=== PATIENT | male | born 1960 | race Caucasian/White ===

== ENCOUNTER 2019-11-28 03:47 | Outpatient (CLI) | payer OTHER, SELFPAY ==
[2019-11-28 19:05] LABS: SARS-CoV-2 RNA PCR Negative
== END 2019-11-28 03:48 | disposition home or self-care (01) ==
LOC: ANHCOVIDDT 03:47
PROVIDERS: PCP Internal Medicine; Visit Provider Internal Medicine Gastroenterology
DX: Z01.812 Encounter for preprocedural laboratory examination (principal); Z20.828 Contact with and (suspected) exposure to other viral communicable diseases
CPT/HCPCS: 87635; C9803; U0003

== ENCOUNTER 2019-11-30 01:42 | Day surgery (SDC) | payer OTHER, SELFPAY ==
[2019-11-26 09:19] VITALS: BMI 42.6
[2019-11-30 08:48] VITALS: BP 115/97; PULSE 72; RESP 20; TEMP 36.3; O2SAT 98; BMI 43.7
--- NOTE | 2019-11-30 08:55 | WPDANESEPPF ---
Anes - Initial Pre Proc Eval Procedure: Operation Date: 11/30/19 09:30 Proposed Procedures p Screening Colonoscopy - Paolo Jay MD Date/Time: 11/30/19 08:55 Surgeon: Paolo Jay MD Pre Op Diagnosis: screening, hx of polyps Patient Data Age: 58 Gender: M Height: 1.73 m Weight: 130.3 kg Last Vital Signs Temp 36.3 C L 11/30/19 08:48 Pulse 72 11/30/19 08:48 Resp 20 11/30/19 08:48 BP 115/97 H 11/30/19 08:48 Pulse Ox 98 11/30/19 08:48 Allergies Allergy/AdvReac Type Severity Reaction Status Date / Time No Known Allergies Allergy Verified 11/30/19 08:47 Home Medications Medication Instructions Recorded Confirmed Type aspirin 81 mg tablet,delayed 81 mg PO DAILY 08/14/19 11/26/19 History release atorvastatin 10 mg tablet 10 mg PO DAILY #90 tablet 11/07/19 11/26/19 Rx lisinopril 10 mg tablet 10 mg PO DAILY #90 tablet 11/23/19 11/26/19 Rx famotidine 2 mg PO DAILY 11/26/19 11/26/19 History Patient hx anesthesia problems: none Family hx anesthesia problems: none PMFSH Past Medical History Medical History (Updated 11/30/19 @ 08:56 by Alex Pearson MD) Chicken pox Chronic GERD Hyperlipidemia Hypertension Obesity JESSE on CPAP Tinnitus Surgical History Surgical History (Updated 08/14/19 @ 07:18 by Sandra Marie CMA) H/O removal of testicle Family History Family History (Updated 10/11/17 @ 08:28 by DOCTOR UNKNOWN) Father Patient's father is in good health Sibling Acute myocardial infarction Mother Family history of malignant neoplasm of ovary Social History Social History Smoking status: Never smoker Alcohol intake: never Substance use type: does not use Living arrangements: with family Gender identity (if verbalized by the patient): Male Spiritual care concerns: No Anes - Eval Final PreProcedure Day of Procedure 11/30/19 08:55 Patient weight: obese Heart: regular rate and rhythm Lungs: clear to auscultation and normal air movement Airway: Mallampati scale class II Neurological: alert and oriented Last oral intake: >/= 8 hours ASA classification: III Emergent: no Anesthetic plan: proceed Anesthesia type and monitoring: general GIVS Informed Consent: The patient's anesthetic plan and its attendant risks and benefits were discussed with the patient/family/POA. Questions were solicited and answers provided to the satisfaction of the patient/family/POA.
--- NOTE | 2019-11-30 09:00 | PM.HPGS ---
History of Present Illness History of Present Illness Consent: Risks, benefits, and alternatives have been discussed and questions answered. Patient agrees to proceed with procedure. Chief complaint: screening, hx of polyps Narrative: William Antonio is a 58 year old W male undergoing screening colonoscopy secondary history of colonic polyps. Last colonoscopy was 3 years ago which time 3 adenomatous polyps were removed. There is no family history of colon polyps or colon cancer. Patient is asymptomatic. [facility] Past Medical History Medical History (Updated 11/30/19 @ 08:56 by Alex Pearson MD) Chicken pox Chronic GERD Hyperlipidemia Hypertension Obesity JESSE on CPAP Tinnitus Surgical History Surgical History (Updated 08/14/19 @ 07:18 by Sandra Marie CMA) H/O removal of testicle Family History Family History (Updated 10/11/17 @ 08:28 by DOCTOR UNKNOWN) Father Patient's father is in good health Sibling Acute myocardial infarction Mother Family history of malignant neoplasm of ovary Social History Social History Smoking status: Never smoker Alcohol intake: never Substance use type: does not use Living arrangements: with family Gender identity (if verbalized by the patient): Male Spiritual care concerns: No Meds Home Medications and Allergies Home Medications Medication Instructions Recorded Confirmed Type aspirin 81 mg tablet,delayed 81 mg PO DAILY 08/14/19 11/26/19 History release atorvastatin 10 mg tablet 10 mg PO DAILY #90 tablet 11/07/19 11/26/19 Rx lisinopril 10 mg tablet 10 mg PO DAILY #90 tablet 11/23/19 11/26/19 Rx famotidine 2 mg PO DAILY 11/26/19 11/26/19 History Allergies Allergy/AdvReac Type Severity Reaction Status Date / Time No Known Allergies Allergy Verified 11/30/19 08:47 Vital Signs Vital Signs - 24 hr 11/30/19 08:48 Temperature 36.3 C L Pulse Rate 72 Respiratory Rate 20 Blood Pressure 115/97 H Pulse Oximetry 98 Exam Const: Orientation/consciousness: patient oriented x3 Resp: Auscultation: clear to auscultation bilaterally Cardio: Rate: regular rate Rhythm: regular rhythm Heart sounds: no murmurs GI: GI Palp: Yes Soft to palpation, No Tenderness to palpation present (GI), Yes No hepatosplenomegaly present and No Palpable mass present Auscultation: normal bowel sounds Neuro: General: patient oriented x3 and no focal motor deficits Extrem: General: no pedal edema Assessment and Plan Additional Plan Screening colonoscopy secondary history of colonic polyps
[2019-11-30] MEDS: LACTATED RINGERS 1,000 ML 150 ML IV CONT (09:04)
[2019-11-30 10:23] VITALS: BP 96/61; PULSE 50; RESP 18; O2SAT 96
[2019-11-30 10:33] VITALS: BP 109/62; PULSE 54; RESP 22; O2SAT 95
[2019-11-30 10:43] VITALS: BP 111/75; PULSE 56; RESP 27; O2SAT 98
== END 2019-11-30 11:01 | disposition home or self-care (01) ==
PROVIDERS: PCP Internal Medicine; Visit Provider Internal Medicine Gastroenterology
PROC: 0DJD8ZZ Inspection of Lower Intestinal Tract, Via Natural or Artificial Opening Endoscopic (ICD-10-PCS; CPT 45378; principal; 2019-11-30 09:30)
DX: Z12.11 Encounter for screening for malignant neoplasm of colon (principal); D12.5 Benign neoplasm of sigmoid colon; D12.3 Benign neoplasm of transverse colon; D12.0 Benign neoplasm of cecum; K21.9 Gastro-esophageal reflux disease without esophagitis; E78.5 Hyperlipidemia, unspecified; E66.9 Obesity, unspecified; I10 Essential (primary) hypertension; G47.33 Obstructive sleep apnea (adult) (pediatric); H93.19 Tinnitus, unspecified ear
CPT/HCPCS: 45385; 45380; 88305; J2704; J7120

== ENCOUNTER 2020-11-21 07:13 | Outpatient (CLI) | payer OTHER, SELFPAY ==
[2020-11-21 08:14] LABS: Basophils Absolute Auto 0.1 K/mm3 (0.0-0.1); Basophils Percent Auto 1.1 % (0.2-1.2); Eosinophils Absolute Auto 0.1 K/mm3 (0-0.3); Eosinophils Percent Auto 2.1 % (0-4.4); Hematocrit 47.5 % (42.0-52.0); Hemoglobin 15.3 g/dL (14.0-18.0); Immature Granulocyte Absolute 0.05 K/mm3 (0.00-0.031); Immature Granulocyte Percent A 0.8 % (0-0.5); Lymphocytes Absolute Auto 1.24 K/mm3 (0.9-3.2); Lymphocytes Percent Auto 18.8 % (18.3-44.2); Mean Corpuscular HGB Conc 32.2 g/dl (32-36); Mean Corpuscular Hemoglobin 30.5 pg (26-34); Mean Corpuscular Volume 94.6 fl (80-100); Mean Platelet Volume 10.6 fl (7.4-10.4); Monocytes Absolute Auto 0.6 K/mm3 (0.1-0.6); Monocytes Percent Auto 9.7 % (2.6-8.5); Neutrophils Absolute Auto 4.5 K/mm3 (1.3-6.7); Neutrophils Percent Auto 67.5 % (45.5-73.1); Platelet Count Result 207 k/mm3 (150-375); Red Blood Count 5.02 M/mm3 (4.6-6.20); Red Cell Distribution Width 13.2 % (11.5-14.5); White Blood Count 6.6 K/mm3 (4.5-10.0)
[2020-11-21 09:08] LABS: Hemoglobin A1C 6.1 % (<5.7)
[2020-11-21 13:50] LABS: Alanine Aminotransferase 41 U/L (4-50); Albumin Level 4.5 g/dL (3.5-5.1); Alkaline Phosphatase 85 U/L (38-126); Anion Gap 8 mmol/L (8-16); Aspartate Amino Transferase 35 U/L (17-59); Bilirubin,Total 0.5 mg/dL (0.2-1.3); Blood Urea Nitrogen 20 mg/dL (9-20); Calcium 9.3 mg/dL (8.4-10.2); Carbon Dioxide 26 mmol/L (22-30); Chloride 104 mmol/L (98-107); Cholesterol 157 mg/dL (0-200); Estimated Glomerular Filt Rate > 60; Glucose 98 mg/dL (65-110); HDL Direct 45 mg/dL; Potassium 4.5 mmol/L (3.4-5.0); Sodium 138 mmol/L (137-145); Triglycerides 132 mg/dL (<150)
[2020-11-21 14:01] LABS: LDL Cholesterol Direct 89 mg/dL
== END 2020-11-21 07:14 | disposition home or self-care (01) ==
PROVIDERS: PCP Internal Medicine; Visit Provider Clinical Nurse Specialist
DX: Z13.228 Encounter for screening for other metabolic disorders (principal); E78.5 Hyperlipidemia, unspecified; R73.09 Other abnormal glucose
CPT/HCPCS: 36415; 80053; 80061; 83036; 85025

== ENCOUNTER 2021-11-27 06:57 | Outpatient (CLI) | payer OTHER, SELFPAY ==
[2021-11-27 07:28] LABS: Basophils Absolute Auto 0.1 K/mm3 (0.0-0.1); Basophils Percent Auto 0.7 % (0.2-1.2); Eosinophils Absolute Auto 0.2 K/mm3 (0-0.3); Eosinophils Percent Auto 2.3 % (0-4.4); Hematocrit 45.4 % (42.0-52.0); Hemoglobin 14.8 g/dL (14.0-18.0); Immature Granulocyte Absolute 0.03 K/mm3 (0.00-0.031); Immature Granulocyte Percent A 0.4 % (0-0.5); Lymphocytes Absolute Auto 1.54 K/mm3 (0.9-3.2); Lymphocytes Percent Auto 22.5 % (18.3-44.2); Mean Corpuscular HGB Conc 32.6 g/dl (32-36); Mean Corpuscular Volume 92.1 fl (80-100); Mean Platelet Volume 10.6 fl (7.4-10.4); Monocytes Absolute Auto 0.7 K/mm3 (0.1-0.6); Monocytes Percent Auto 9.5 % (2.6-8.5); Neutrophils Absolute Auto 4.4 K/mm3 (1.3-6.7); Neutrophils Percent Auto 64.6 % (45.5-73.1); Platelet Count Result 214 k/mm3 (150-375); Red Blood Count 4.93 M/mm3 (4.6-6.20); Red Cell Distribution Width 13.4 % (11.5-14.5); White Blood Count 6.9 K/mm3 (4.5-10.0)
[2021-11-27 07:39] LABS: Alanine Aminotransferase 36 U/L (6-50); Albumin Level 4.2 g/dL (3.5-5.1); Alkaline Phosphatase 77 U/L (38-126); Anion Gap 9 mmol/L (8-16); Aspartate Amino Transferase 31 U/L (17-59); Bilirubin,Total 0.6 mg/dL (0.2-1.3); Blood Urea Nitrogen 20 mg/dL (9-20); Calcium 9.3 mg/dL (8.4-10.2); Carbon Dioxide 28 mmol/L (22-30); Chloride 101 mmol/L (98-107); Cholesterol 145 mg/dL (0-200); Estimated Glomerular Filt Rate > 60; Glucose 114 mg/dL (65-110); HDL Direct 42 mg/dL; Potassium 4.7 mmol/L (3.4-5.0); Sodium 138 mmol/L (137-145); Triglycerides 118 mg/dL (<150)
[2021-11-27 07:50] LABS: LDL Cholesterol Direct 76 mg/dL
[2021-11-27 07:59] LABS: Hemoglobin A1C 6.1 % (<5.7)
[2021-11-27 08:07] LABS: Rheumatoid Factor < 8.6 IU/ML (<12)
[2021-11-27 08:09] LABS: Prostate Specific Antigen 1.1 ng/mL (< OR = 4.0)
[2021-11-27 09:16] LABS: Erythrocyte Sedimentation Rate 10 mm/hr (0-20)
[2021-11-27 09:30] LABS: Vitamin D 25 Hydroxy 18.8 ng/mL
== END 2021-11-27 06:58 | disposition home or self-care (01) ==
LOC: ANHLAB 06:59
PROVIDERS: PCP Internal Medicine; Visit Provider Clinical Nurse Specialist
DX: M79.10 Myalgia, unspecified site (principal); I10 Essential (primary) hypertension; R73.09 Other abnormal glucose; E78.2 Mixed hyperlipidemia; Z12.5 Encounter for screening for malignant neoplasm of prostate; E55.9 Vitamin D deficiency, unspecified
CPT/HCPCS: 36415; 80053; 80061; 82306; 83036; 84153; 84443; 85025; 85652; 86038; 86430; G0103

== ENCOUNTER 2022-04-02 12:31 | Emergency (ER) | payer OTHER, SELFPAY ==
--- NOTE | ~2022-04-02 | XR_ITS ---
EXAMINATION: XR chest 2V 04/02/2022 13:16 INDICATION: Left-sided chest pain PROCEDURE: 2 view chest COMPARISON: No prior studies for comparison. FINDINGS: The lungs are clear. The cardiomediastinal silhouette is within normal limits. There are no pleural effusions. There is no pneumothorax suspected. There is a healed left clavicular fractur e. IMPRESSION: 1: NO ACUTE CARDIOPULMONARY DISEASE. Reviewed, dictated and finalized at location B. [employer]
--- NOTE | 2022-04-02 12:33 | ECG_ITS ---
Measurements Intervals Plessis Rate: 59 P: 18 NC: 156 QRS: -44 QRSD: 101 T: 14 QT: 393 QTc: 390 Interpretive Statements SINUS BRADYCARDIA WITH OCCASIONAL ATRIAL PREMATURE COMPLEXES LEFT ANTERIOR SUPERIOR HEMIBLOCK ABNORMAL ECG NO PREVIOUS ECG AVAILABLE FOR COMPARISON Electronically Signed On 04-02-2022 15:39:01 MANAGER SHIFT by Petar Kwon M.D.
[2022-04-02 12:51] VITALS: BP 142/80; PULSE 56; RESP 18; TEMP 36.6; O2SAT 100
[2022-04-02 13:32] LABS: Basophils Absolute Auto 0.1 K/mm3 (0.0-0.1); Basophils Percent Auto 1.1 % (0.2-1.2); Eosinophils Absolute Auto 0.2 K/mm3 (0-0.3); Eosinophils Percent Auto 2.1 % (0-4.4); Hematocrit 49.5 % (42.0-52.0); Hemoglobin 16.3 g/dL (14.0-18.0); Immature Granulocyte Absolute 0.02 K/mm3 (0.00-0.031); Immature Granulocyte Percent A 0.3 % (0-0.5); Lymphocytes Absolute Auto 1.32 K/mm3 (0.9-3.2); Lymphocytes Percent Auto 18.9 % (18.3-44.2); Mean Corpuscular HGB Conc 32.9 g/dl (32-36); Mean Corpuscular Hemoglobin 30.4 pg (26-34); Mean Corpuscular Volume 92.4 fl (80-100); Mean Platelet Volume 10.8 fl (7.4-10.4); Monocytes Absolute Auto 0.8 K/mm3 (0.1-0.6); Monocytes Percent Auto 10.7 % (2.6-8.5); Neutrophils Absolute Auto 4.7 K/mm3 (1.3-6.7); Neutrophils Percent Auto 66.9 % (45.5-73.1); Platelet Count Result 217 k/mm3 (150-375); Red Blood Count 5.36 M/mm3 (4.6-6.20); Red Cell Distribution Width 12.9 % (11.5-14.5)
[2022-04-02 13:43] LABS: Prothrombin Time 12.9 Seconds (11.1-14.7)
[2022-04-02 13:44] LABS: Partial Thromboplastin Time 27.6 SECONDS (22.3-36.8)
[2022-04-02 13:52] LABS: Alanine Aminotransferase 37 U/L (6-50); Albumin Level 4.8 g/dL (3.5-5.1); Alkaline Phosphatase 77 U/L (38-126); Anion Gap 6 mmol/L (8-16); Aspartate Amino Transferase 35 U/L (17-59); Bilirubin,Total 0.8 mg/dL (0.2-1.3); Blood Urea Nitrogen 21 mg/dL (9-20); Calcium 9.7 mg/dL (8.4-10.2); Carbon Dioxide 29 mmol/L (22-30); Chloride 103 mmol/L (98-107); Estimated CRCL calculation 93 ml/min; Estimated Glomerular Filt Rate > 60; Glucose 103 mg/dL (65-110); Lipase 103 U/L (23-300); Sodium 138 mmol/L (137-145)
[2022-04-02 14:02] LABS: Troponin I < 0.012 ng/mL (0.000-0.034)
[2022-04-02 14:12] VITALS: BP 134/92; PULSE 55; RESP 14; TEMP 36.3; O2SAT 100
[2022-04-02 14:14] VITALS: PULSE 57
--- NOTE | 2022-04-02 14:24 | ED.CHESTPAIN ---
HPI - Chest Pain General Chief Complaint: Chest Pain Stated Complaint: left side chest pain down left arm Time Seen by Provider: 04/02/22 14:09 Source: patient Mode of arrival: ambulatory Limitations: no limitations History of Present Illness HPI narrative: 61-year-old with a history of hypertension here with complaints of left-sided chest pain on and off for last several weeks. Patient states that he has a history of left clavicle fracture several years ago. He states that pain comes on randomly mostly when he sleeps on the left side or when he raises his shoulder for certain.. He denies any shortness of breath. Pain gets better with ibuprofen and Biofreeze. She presently has no pain he wanted to check it out to see if this pain is from his heart no previous history of CAD MD complaint: chest pain Onset (ago): month(s) Timing of current episode: episodic Pain radiation: left arm and back Severity: mild Quality: aching Relieving factors: other (Change in position or ibuprofen or Tylenol) Exacerbating factors: nothing Risk Factors Coronary artery disease risk factors: hypertension Related Data Home Medications Medication Instructions Recorded Confirmed famotidine 20 mg PO DAILY 12/02/21 04/02/22 Allergies Allergy/AdvReac Type Severity Reaction Status Date / Time No Known Allergies Allergy Verified 04/02/22 14:13 Review of Systems Review of Systems: All systems reviewed & are unremarkable except as noted in HPI and below Constitutional: Constitutional: Reports no additional constitutional complaints Eyes: Eyes: Reports no additional eye complaints Cardiovascular: Cardiovascular: Reports no additional cardiovascular complaints Respiratory: Respiratory: Reports no additional respiratory complaints Gastrointestinal: Gastrointestinal: Reports no additional gastrointestinal complaints Musculoskeletal: Musculoskeletal: Reports as per HPI [facility] Past Medical History Medical History Chicken pox Chronic GERD Hyperlipidemia Hypertension Obesity JESSE on CPAP Tinnitus Surgical History Surgical History H/O removal of testicle Family History Family History Father Patient's father is in good health Sibling Acute myocardial infarction Mother Family history of malignant neoplasm of ovary Social History Social History (Updated 04/02/22 @ 11:28 by Barbara Pettit CMA) Smoking status: Never smoker Alcohol intake: never Substance use type: does not use Lack of Transportation: No Lack of Food: Never True Current Housing: I Have Housing Concerned About Future Housing: No Difficulty Paying Gas/Electric Bills: No Difficulty Paying for Meds: No Currently Unemployed: No Education: Trade/Vocational Certificate Difficulty w/ Childcare or Family Care: No Living arrangements: with family Gender identity (if verbalized by the patient): Male Spiritual care concerns: No Exam Narrative: GENERAL: Well-appearing, well-nourished, and in no acute distress. HEAD: Normocephalic, atraumatic. EYES: PERRLA and EOMI. NECK: Supple. CHEST: Clear to auscultation. No respiratory distress. HEART: Regular rate and rhythm. No murmur heard. Normal peripheral pulses. ABDOMEN: Soft, nontender, nondistended, normal active bowel sounds. EXTREMITIES: Normal range of motion. No edema. SKIN: Warm, dry, no rash. NEURO: No focal deficits. Alert and oriented x3. PSYCH: Normal mood and affect. Course Course Emergency Course: Patient presently asymptomatic informed him about his lab work, EKG findings. Cause of his pain most likely is musculoskeletal rather than cardiac as this pain has been ongoing for several weeks. Recommended him to follow-up with his primary doctor to consider physical therapy. Vital Signs Vital signs: Vital S
[2022-04-02 14:57] VITALS: BP 127/88; PULSE 58; RESP 17; TEMP 36.6; O2SAT 98
== END 2022-04-02 14:57 | disposition home or self-care (01) ==
LOC: ANHED 14:44
PROVIDERS: Emergency Medicine; Emergency Provider Family Medicine; PCP Internal Medicine
DX: R07.89 Other chest pain (principal); I25.10 Atherosclerotic heart disease of native coronary artery without angina pectoris; E78.5 Hyperlipidemia, unspecified; I10 Essential (primary) hypertension; G47.33 Obstructive sleep apnea (adult) (pediatric); K21.9 Gastro-esophageal reflux disease without esophagitis; E66.9 Obesity, unspecified; Z68.41 Body mass index [BMI] 40.0-44.9, adult; R00.1 Bradycardia, unspecified; I49.1 Atrial premature depolarization; I44.4 Left anterior fascicular block
CPT/HCPCS: 36415; 71046; 80053; 83690; 84484; 85025; 85610; 85730; 93005; 99284

== ENCOUNTER 2022-11-19 07:00 | Outpatient (CLI) | payer OTHER, SELFPAY ==
[2022-11-19 07:36] LABS: Basophils Absolute Auto 0.1 K/mm3 (0.0-0.1); Basophils Percent Auto 0.9 % (0.2-1.2); Eosinophils Absolute Auto 0.1 K/mm3 (0-0.3); Eosinophils Percent Auto 2.1 % (0-4.4); Hemoglobin 15.3 g/dL (14.0-18.0); Immature Granulocyte Absolute 0.02 K/mm3 (0.00-0.031); Immature Granulocyte Percent A 0.3 % (0-0.5); Lymphocytes Absolute Auto 1.37 K/mm3 (0.9-3.2); Lymphocytes Percent Auto 20.7 % (18.3-44.2); Mean Corpuscular HGB Conc 31.9 g/dl (32-36); Mean Corpuscular Hemoglobin 30.4 pg (26-34); Mean Corpuscular Volume 95.2 fl (80-100); Monocytes Absolute Auto 0.7 K/mm3 (0.1-0.6); Monocytes Percent Auto 10.4 % (2.6-8.5); Neutrophils Absolute Auto 4.4 K/mm3 (1.3-6.7); Neutrophils Percent Auto 65.6 % (45.5-73.1); Platelet Count Result 191 k/mm3 (150-375); Red Blood Count 5.04 M/mm3 (4.6-6.20); Red Cell Distribution Width 13.1 % (11.5-14.5); White Blood Count 6.6 K/mm3 (4.5-10.0)
[2022-11-19 14:47] LABS: Alanine Aminotransferase 29 U/L (6-50); Albumin Level 4.5 g/dL (3.5-5.1); Alkaline Phosphatase 72 U/L (38-126); Anion Gap 9 mmol/L (8-16); Aspartate Amino Transferase 29 U/L (17-59); Bilirubin,Total 0.8 mg/dL (0.2-1.3); Blood Urea Nitrogen 17 mg/dL (9-20); Calcium 9.2 mg/dL (8.4-10.2); Carbon Dioxide 24 mmol/L (22-30); Chloride 103 mmol/L (98-107); Cholesterol 156 mg/dL (0-200); Estimated Glomerular Filt Rate > 60; Glucose 90 mg/dL (65-110); HDL Direct 41 mg/dL; Potassium 4.2 mmol/L (3.4-5.0); Sodium 136 mmol/L (137-145); Triglycerides 192 mg/dL (<150)
[2022-11-19 14:57] LABS: LDL Cholesterol Direct 81 mg/dL
[2022-11-19 15:20] LABS: Prostate Specific Antigen 0.8 ng/mL (< OR = 4.0)
== END 2022-11-19 07:01 | disposition home or self-care (01) ==
PROVIDERS: PCP Internal Medicine; Visit Provider Clinical Nurse Specialist
DX: Z13.228 Encounter for screening for other metabolic disorders (principal); I10 Essential (primary) hypertension; E78.5 Hyperlipidemia, unspecified; Z12.5 Encounter for screening for malignant neoplasm of prostate
CPT/HCPCS: 36415; 80053; 80061; 84153; 85025; 85055; G0103

== ENCOUNTER 2023-02-28 01:21 | Day surgery (SDC) | payer OTHER, SELFPAY ==
[2023-02-02 13:31] VITALS: BMI 44.7
--- NOTE | 2023-02-25 09:15 | SUR.PREOP ---
Patient called regarding upcoming procedure. Reviewed preop instructions, appointment times, and procedure prep.
[2023-02-28 06:48] VITALS: BP 132/76; PULSE 71; RESP 16; TEMP 36.2; O2SAT 97; BMI 43.7
[2023-02-28] MEDS: LACTATED RINGERS 1,000 ML 150 ML IV CONT (07:14)
--- NOTE | 2023-02-28 07:24 | P.PNAN_ITS ---
Anes - Initial Pre Proc Eval Procedure: Operation Date: 02/28/23 08:00 Proposed Procedures p Colonoscopy - Tyler Washington MD Date/Time: 02/28/23 07:24 Surgeon: Tyler Washington MD Pre Op Diagnosis: hx of colon polyps Patient Data Age: 62 Gender: M Height: 1.75 m Weight: 134.5 kg Last Vital Signs Temp 97.2 F L 02/28/23 06:48 Pulse 71 02/28/23 06:48 Resp 16 02/28/23 06:48 BP 132/76 02/28/23 06:48 Pulse Ox 97 02/28/23 06:48 O2 Del Method Room Air 02/28/23 06:48 Allergies Allergy/AdvReac Type Severity Reaction Status Date / Time No Known Allergies Allergy Verified 02/28/23 06:57 Home Medications Medication Instructions Recorded Confirmed Type cholecalciferol (vitamin D3) 50 50 mcg PO DAILY 04/08/22 02/28/23 History mcg (2,000 unit) capsule atorvastatin 10 mg tablet 10 mg PO DAILY #90 tabs 11/23/22 02/28/23 Rx famotidine 40 mg tablet 40 mg PO DAILY 02/02/23 02/28/23 History lisinopril 10 mg tablet See Rx Instructions .Route 02/28/23 Rx .COMPLEX #90 tabs Patient hx anesthesia problems: none Family hx anesthesia problems: none Results Review: All pre-operative results and documents have been reviewed as part of the pre- operative evaluation. [facility] Past Medical History Medical History Chicken pox Chronic GERD Hyperlipidemia Hypertension Obesity JESSE on CPAP Tinnitus Surgical History Surgical History H/O removal of testicle Family History Family History Father Patient's father is in good health Sibling Acute myocardial infarction Mother Family history of malignant neoplasm of ovary Social History Social History (Updated 12/06/22 @ 15:24 by Fidel Sarkar MA) Smoking status: Never smoker Alcohol intake: never Substance use: never Substance use type: does not use Lack of Transportation: No Lack of Food: Never True Current Housing: I Have Housing Concerned About Future Housing: No Difficulty Paying Gas/Electric Bills: No Difficulty Paying for Meds: No Currently Unemployed: No Education: Associate Degree Difficulty w/ Childcare or Family Care: No Living arrangements: with family Gender identity (if verbalized by the patient): Male Spiritual care concerns: No Anes - Eval Final PreProcedure Day of Procedure 02/28/23 07:24 Patient weight: morbidly obese Heart: regular rate and rhythm Lungs: clear to auscultation Airway: Mallampati scale class II Neurological: alert and oriented Last oral intake: >/= 8 hours ASA classification: III Emergent: no Anesthetic plan: proceed Anesthesia type and monitoring: general GIVS and standard monitoring Results Review: All pre-operative results and documents have been reviewed as part of the pre- operative evaluation. Informed Consent: The patient's anesthetic plan and its attendant risks and benefits were discussed with the patient/family/POA. Questions were solicited and answers provided to the satisfaction of the patient/family/POA.
--- NOTE | 2023-02-28 08:23 | PM.HPGS ---
History of Present Illness History of Present Illness Consent: Risks, benefits, and alternatives have been discussed and questions answered. Patient agrees to proceed with procedure. Chief complaint: hx of colon polyps Narrative: William Antonio is a 62 year old male with colon polyps in 2019 Review of Systems Constitutional: Constitutional: Denies headache(s) and Denies weakness Eyes: Eyes: Denies blurry vision ENT: Reports Normal hearing present, Denies headache(s) and Denies neck pain Cardiovascular: Cardiovascular: Denies chest pain and Denies dyspnea Respiratory: Respiratory: Denies dyspnea Gastrointestinal: Gastrointestinal: Reports no additional gastrointestinal complaints Genitourinary: Genitourinary: Denies dysuria Musculoskeletal: Musculoskeletal: Denies neck pain Integumentary/Breasts: Skin/Breast: Denies dry skin Neurologic: Reports Normal hearing present, Denies headache(s) and Denies weakness Psychiatric: Psychiatric: Denies anxiety Endocrine: Endocrine: Denies change in body appearance Hematologic/Lymphatic: Hematologic/Lymphatic: Denies easy bleeding Allergic/Immunologic: Allergic/Immunologic: Denies urticaria PMFSH Past Medical History Medical History Chicken pox Chronic GERD Hyperlipidemia Hypertension Obesity JESSE on CPAP Tinnitus Surgical History Surgical History H/O removal of testicle Family History Family History Father Patient's father is in good health Sibling Acute myocardial infarction Mother Family history of malignant neoplasm of ovary Social History Social History (Updated 12/06/22 @ 15:24 by Fidel Sarkar MA) Smoking status: Never smoker Alcohol intake: never Substance use: never Substance use type: does not use Lack of Transportation: No Lack of Food: Never True Current Housing: I Have Housing Concerned About Future Housing: No Difficulty Paying Gas/Electric Bills: No Difficulty Paying for Meds: No Currently Unemployed: No Education: Associate Degree Difficulty w/ Childcare or Family Care: No Living arrangements: with family Gender identity (if verbalized by the patient): Male Spiritual care concerns: No Meds Home Medications and Allergies Home Medications Medication Instructions Recorded Confirmed Type cholecalciferol (vitamin D3) 50 50 mcg PO DAILY 04/08/22 02/28/23 History mcg (2,000 unit) capsule lisinopril 10 mg tablet See Rx Instructions .Route 09/21/22 02/28/23 Rx .COMPLEX #90 tabs atorvastatin 10 mg tablet 10 mg PO DAILY #90 tabs 11/23/22 02/28/23 Rx famotidine 40 mg tablet 40 mg PO DAILY 02/02/23 02/28/23 History Allergies Allergy/AdvReac Type Severity Reaction Status Date / Time No Known Allergies Allergy Verified 02/28/23 06:57 Vital Signs Vital Signs - 24 hr 02/28/23 06:48 Temperature 97.2 F L Pulse Rate 71 Respiratory Rate 16 Blood Pressure 132/76 Pulse Oximetry 97 Oxygen Delivery Room Air Exam Const: General: comfortable and no acute distress HENMT: Face/Nose/Sinus: Normal nares present Eyes: General: appearance normal, both eyes and all related structures Neck: Neck: no JVD Resp: Auscultation: clear to auscultation bilaterally Cardio: Rate: regular rate Rhythm: regular rhythm GI: Inspection: non-distended GI Palp: Yes Soft to palpation Skin: General skin exam: normal color Neuro: General: gait normal Speech: normal speech Extrem: General: normal to inspection Psych: Mental Status: mental status grossly normal Assessment and Plan Assessment and plan (1) History of adenomatous polyp of colon: Code(s): Z86.010 - Personal history of colonic polyps Status: Acute Assessment and Plan: colonoscopy
[2023-02-28 08:46] VITALS: BP 83/39; PULSE 53; RESP 13; O2SAT 95
[2023-02-28 08:48] VITALS: BP 77/34; PULSE 54; RESP 13; O2SAT 95
[2023-02-28 08:50] VITALS: BP 90/50; PULSE 49; RESP 13; O2SAT 95
[2023-02-28 09:00] VITALS: BP 114/69; PULSE 54; RESP 15; O2SAT 95
[2023-02-28 09:10] VITALS: BP 113/76; PULSE 54; RESP 15; O2SAT 100
== END 2023-02-28 09:16 | disposition home or self-care (01) ==
PROVIDERS: PCP Internal Medicine; Visit Provider Internal Medicine Gastroenterology
PROC: 0DJD8ZZ Inspection of Lower Intestinal Tract, Via Natural or Artificial Opening Endoscopic (ICD-10-PCS; CPT 45378; principal; 2023-02-28 08:00)
DX: Z12.11 Encounter for screening for malignant neoplasm of colon (principal); D12.3 Benign neoplasm of transverse colon; K21.9 Gastro-esophageal reflux disease without esophagitis; E78.5 Hyperlipidemia, unspecified; I10 Essential (primary) hypertension; G47.33 Obstructive sleep apnea (adult) (pediatric); E66.01 Morbid (severe) obesity due to excess calories; Z68.41 Body mass index [BMI] 40.0-44.9, adult; Z99.89 Dependence on other enabling machines and devices; Z98.890 Other specified postprocedural states; Z86.010 Personal history of colon polyps; Z82.49 Family history of ischemic heart disease and other diseases of the circulatory system; Z80.41 Family history of malignant neoplasm of ovary
CPT/HCPCS: 45385; 88305; J2371; J2704; J7120